=== PATIENT | female | born 1950 | race Caucasian/White ===

== ENCOUNTER 2016-11-18 22:20 | Inpatient (IN) ==
[2016-11-19] MEDS ORDERED: ONDANSETRON 4 MG/2 ML VIAL IV STA (00:43)
[2016-11-19] MEDS ORDERED: HYDROmorphone 2 MG/1 ML VIAL IV STA (00:43)
[2016-11-19 00:47] LABS: Basophils # 0.1 10*3/uL (0.0-0.2); Basophils % 0.5 % (0.0-0.8); Eosinophils # 0.1 10*3/uL (0.0-0.87); Hematocrit 36.6 VOL% (35.7-47.0); Hemoglobin 12.6 GM/DL (12.0-16.0); Immature Granulocytes % 0.4 %; Immature Granulocytes Absolute 0.04 #; Lymphocytes % 18.3 % (21.3-54.2); Mean Corpuscular HGB Conc 34.4 GM/DL (32-36); Mean Corpuscular Hemoglobin 31 PG (27-34); Mean Corpuscular Volume 90.6 FL (87-102); Mean Platelet Volume 10.8 FL (9.6-12.0); Monocytes # 0.9 10*3/uL (0.11-0.8); Neutrophils # 7.8 10*3/uL (1.4-7.4); Neutrophils % 71.8 % (38.7-73.9); Platelet Count 213 T/CUMM (130-400); Red Blood Count 4.04 MC/CUMM (3.8-5.5); Red Cell Distribution Width 11.8 % (9.3-17.3); White Blood Count 10.9 T/CUMM (4-12)
[2016-11-19] MEDS ORDERED: ONDANSETRON 4 MG/2 ML VIAL ONE ×3 (00:55→16:54)
[2016-11-19] MEDS ORDERED: HYDROmorphone 2 MG/1 ML VIAL ONE ×2 (00:56→16:54)
--- NOTE | 2016-11-19 01:02 | Emergency Department Note ---
ISneha Rolonda, am scribing for, and in the presence of, Cleopatra Leung DO 00: 46. IMadhu Debra, DO, personally performed the services described in this documentation, ascribed by Oscar Hoover in my presence, and it is both accurate and complete . Arrival - Arrival Chief Complaint: Non-Specific Stated Complaint: pain/swollen in chest, bleeding nipples ED Nursing Triage Note: AMB TO ER WITH COMPLAINTS OF HAVING A LUMPECTOMY [address] ORTIZ. STATES HAS HAD NO COMPLICATIONS SINCE SURGERY BUT YESTERDAY STARTED HAVING MILD PAIN IN RIGHT BREAST AT SURGICAL SITE. TODAY PAIN BECAME WORSE AND AREA HAS STARTED TO SWELL. AROUND 2100 AREA BEGAN SWELLING EVEN MORE AND STARTED BLEEDING FROM RIGHT NIPPLE. HAD TO HAVE LUMPECTOMY DUE TO A CANCEROUS AREA FOUND AT THE BEGININNG OF . Mode of Arrival: Ambulatory Limitations: No Limitations Source: Patient, Old Records Reviewed, RN Notes Reviewed - History of Present Illness HPI Narrative: Pt is a 66 y/o female who presents to the ED with c/o right breast pain with an onset of yesterday. Pt has a PMHx of Breast CA. Pt states that she had a Lumpectomy x2 weeks ago and that the pain worsened today. She states that she was getting ready for bed when her right breast began to bleed. She confirms associated sxs of swelling and hardness. Pt states that she developed chills but is unaware of having fever. She states that she took 325 mg of Tylenol for pain with no relief. No other complaint/pain in ED. Onset (ago): day(s) Consistency: constant Severity: moderate Severity scale (1-10): 5 Allergies/Adverse Reactions: Allergies Allergy/AdvReac Type Severity Reaction Status Date / Time brimonidine [From Alphagan P] Allergy Severe Fainting Verified 11/18/16 23:13 Cefaclor [From Ceclor] Allergy Severe Palpitation Verified 11/18/16 23:13 s ciprofloxacin [From Cipro] Allergy Severe Palpitation Verified 11/18/16 23:13 s codeine Allergy Severe SHORTNESS Verified 11/18/16 23:13 OF BREATH Dorzolamide [From Cosopt] Allergy Severe EYE Verified 11/18/16 23:13 SWELLING guaifenesin [From Deconex] Allergy Severe Palpitation Verified 11/18/16 23:13 s morphine Allergy Severe Confusion Verified 11/18/16 23:13 phenylephrine [From Deconex] Allergy Severe Palpitation Verified 11/18/16 23:13 s Sulfa (Sulfonamide Allergy Severe SHORTNESS Verified 11/18/16 23:13 Antibiotics) OF BREATH influenza virus vaccine, Allergy Intermediate BLISTER Verified 11/18/16 23:13 specific Pneumococcal Vaccine Allergy Intermediate BLISTER Verified 11/18/16 23:13 timolol [From Cosopt] Allergy Intermediate EYE Verified 11/18/16 23:13 SWELLING penicillin G AdvReac Severe Palpitation Verified 11/18/16 23:13 s Home Medications: Home Medications Medication Instructions Recorded Confirmed Type Bimatoprost 0.01% Oph Soln 1 drop BOTH EYES BEDTIME 11/07/16 11/07/16 History [[place]] Tramadol HCl [Tramadol Tab] 50 mg PO Q6H PRN #10 tablet 11/08/16 Rx Review of System - Review of System 12 point system: reviewed and no additional remarkable complaints except as stated - Review of System Constitutional: Present: chills. Absent: fever Eyes: Absent: discharge Head/Ears/Nose/Throat: Absent: earache Respiratory: Absent: cough Cardiovascular: Absent: chest pain Gastrointestinal: Absent: abdominal pain Genitourinary female: Absent: abnormal menses Musculoskeletal: Absent: arm pain, back pain Skin: Absent: rash Neurological: Absent: headache Psychiatric: Absent: anxiety Endocrine: Absent: cold intolerance Hematological/Lymphatic: Absent: easy bleeding Allergic/Immunologic: Absent: facial swelling Medical,Surgical,& Family Hx - Medical History Neurology: No history of: Seizures HEENT: History of: Eye Problem (GLASSES), Dental Problems (CAPPED TEETH.), Glaucoma Respiratory: No history of: Respiratory Problems (FLU VAC- NO; PNEU VAC-NO ALLERGIC.) Gastrointestinal: History of: GI Problems (IBS) Reproductive: History of: Breast Cancer (RT BREAST) Other: History of: Cancer (BREAST RT.) - Surgical History HEENT Surgeries: Surgical HX of: Eye Surgery (MULTIPLE EYE SURGERY ON LEFT EYE, LASER TX ON RT EYE. DR SALGADO IN [place].) Abdominal Surgeries: Surgical HX of: Abdominal Surgery, Appendectomy, Colonoscopy Reproductive Surgeries: Surgical HX of;: Breast Surgery (RT BREAST BX.), Gynecologic Surgery, Hysterectomy - Family History Family History: Reports;: Family Cancer (MOTHER BREAST, PATERNAL AUNT.), Family Heart Disease (mother had coronary artery disease), Family Hypertension (MOTHER) - Social History Smoking Status: Never smoker Frequency of Alcohol Use: None Type of Drug Use: None Exam Vital Signs: Vital Signs Temperature 98.6 F 11/18/16 23:02 Pulse Rate 99 H 11/18/16 23:02 Respiratory Rate 20 11/18/16 23:02 Blood Pressure 147/82 11/18/16 23:02 O2 Sat by Pulse Oximetry 99 11/18/16 23:02 - General General appearance: alert, in no apparent distress - Head Head exam: Present: atraumatic, normocephalic - Eye Eye exam: Present: PERRL, EOMI - ENT ENT exam: Present: mucous membranes moist. Absent: mucous membranes dry - Neck Neck exam: Present: full ROM. Absent: tenderness - Chest Chest inspection: Present: symmetric chest wall rise, other (right breast incision intact; hard; bruised; and tender). Absent: tenderness - Respiratory Respiratory exam: Present: normal lung sounds bilaterally. Absent: wheezes - Cardiovascular Cardiovascular exam: Present: regular rate, normal rhythm, normal heart sounds. Absent: bradycardia - Abdominal Exam Abdominal exam: Present: soft, normal bowel sounds. Absent: tenderness - Extremities Exam Extremities exam: Present: full ROM. Absent: tenderness - Back Exam Back exam: Present: full ROM. Absent: tenderness - Neurological Exam Neurological exam: Present: alert, oriented X3, CN II-XII intact - Psychiatric Psychiatric exam: Present: normal affect, normal mood - Skin Skin exam: Present: warm, dry, intact, pallor Course Course Narrative: spoke with DR Ortiz who will admit pt and start on antibiotics Results - Labs CBC & BMP: 11/19/16 00:09 11/19/16 00:09 Lab Results: I have reviewed the patients labs Disposition Clinical Impression: Breast pain Case discussed with: patient, patient's family Disposition: Still a Patient Condition: Stable Time of Disposition: 01:49
[2016-11-19 01:18] LABS: Alanine Aminotransferase 31 U/L (13-56); Albumin 3.7 G/DL (3.4-5.0); Alkaline Phosphatase 94 U/L (45-117); Aspartate Amino Transferase 27 U/L (0-37); Bilirubin,Total < 0.39 MG/DL (0.2-1.0); Blood Urea Nitrogen 18 MG/DL (7-18); Calcium 9.4 MG/DL (8.5-10.1); Glucose 148 MG/DL (74-106); Osmolality,Calculated 285.3 MOS/KG (273-304); Potassium 3.9 MMOL/L (3.5-5.1); Sodium 141 MMOL/L (136-145); Total Protein 6.5 G/DL (6.4-8.3)
[2016-11-19] MEDS ORDERED: HYDROmorphone 2 MG/1 ML VIAL IV PRN ×2 (01:50→16:22)
[2016-11-19] MEDS ORDERED: ONDANSETRON 4 MG/2 ML VIAL IV PRN ×3 (01:50→16:46)
[2016-11-19] MEDS: DEXTROSE 5% NACL 0.45% 1,000 ML IV SCH ×3 (03:15→20:06)
[2016-11-19] MEDS: PIPERACILLIN/TAZOBACTAM 3,375 MG in SODIUM CHLORIDE 0.9% 100 ML IV SCH ×3 (03:20→20:34)
[2016-11-19 07:38] LABS: Basophils % 0.2 % (0.0-0.8); Eosinophils % 0.1 % (0.00-10.9); Hematocrit 32.7 VOL% (35.7-47.0); Hemoglobin 11.2 GM/DL (12.0-16.0); Immature Granulocytes % 0.4 %; Immature Granulocytes Absolute 0.03 #; Lymphocytes # 0.9 10*3/uL (1.4-4.0); Lymphocytes % 10.6 % (21.3-54.2); Mean Corpuscular HGB Conc 34.3 GM/DL (32-36); Mean Corpuscular Hemoglobin 32 PG (27-34); Mean Corpuscular Volume 92.1 FL (87-102); Mean Platelet Volume 10.8 FL (9.6-12.0); Monocytes # 0.6 10*3/uL (0.11-0.8); Neutrophils # 6.8 10*3/uL (1.4-7.4); Neutrophils % 81.7 % (38.7-73.9); Platelet Count 156 T/CUMM (130-400); Red Blood Count 3.55 MC/CUMM (3.8-5.5); Red Cell Distribution Width 11.9 % (9.3-17.3); White Blood Count 8.3 T/CUMM (4-12)
[2016-11-19 08:05] LABS: Calcium 8.7 MG/DL (8.5-10.1); Osmolality,Calculated 285.1 MOS/KG (273-304)
[2016-11-19] MEDS: PANTOPRAZOLE 40 MG TABLET PO SCH (08:53)
--- NOTE | 2016-11-19 09:05 | Ultrasound Report ---
Ultrasound of the right breast. Indication: Postoperative from old lumpectomy, swollen and tender. Within the posterior tissues of the right breast, at approximately the 9:00 position, there is a hypoechogenicity, measuring 8.5 x 4.5 x 2.7 cm without internal blood flow. These findings are most suggestive of a hematoma, with seroma or abscess being less likely. The Ultrasound images were captured and stored. PROCEDURE INTERPRETED AT [facility] DEPARTMENT OF RADIOLOGY Final Report Signed by: Dr. Lisa Domínguez
--- NOTE | 2016-11-19 13:21 | General Surg History&Physical ---
Assessment and Plan - Time spent with patient Time spent with patient: Less than 30 minutes (1) Breast pain Status: Acute Assessment and plan: Impression: 1. Right breast pain and swelling probably secondary to seroma versus hematoma Plan: Surgery to evacuate hematoma seroma Current Visit: Yes (2) Infiltrating ductal carcinoma of right breast, estrogen receptor positive, stage 1 Status: Resolved Assessment and plan: Impression: Carcinoma of the right breast status post lumpectomy and oncoplastic reconstruction Current Visit: No History of Present Illness Chief complaint: Onset of swelling and pain in the right breast lumpectomy site History of present illness: Ms. Lees is a 66 year old female white female who underwent almost 2 weeks ago a lumpectomy with oculoplastic reconstruction of the right breast by myself and Dr. Chowdary for a cancer in the breast. She has done well without any unusual problems and back in the clinic and of [facility] and Dr. Chowdary's without any problems. She did well until yesterday when all of a sudden she had some swelling with some increased pain in that breast with a fullness and discomfort. Came to the emergency room where she was admitted and this morning on examination and ultrasound suggests that she may have a hematoma in that area or seroma. We will see if we can take her to surgery and to evacuate this and get this process under control. Home Medications Medication Instructions Recorded Confirmed Type No Known Home Medications [No 11/19/16 11/19/16 History Known Home Medications] Allergies Allergy/AdvReac Type Severity Reaction Status Date / Time brimonidine [From Alphagan P] Allergy Severe Fainting Verified 11/18/16 23:13 Cefaclor [From Ceclor] Allergy Severe Palpitation Verified 11/18/16 23:13 s ciprofloxacin [From Cipro] Allergy Severe Palpitation Verified 11/18/16 23:13 s codeine Allergy Severe SHORTNESS Verified 11/18/16 23:13 OF BREATH Dorzolamide [From Cosopt] Allergy Severe EYE Verified 11/18/16 23:13 SWELLING guaifenesin [From Deconex] Allergy Severe Palpitation Verified 11/18/16 23:13 s morphine Allergy Severe Confusion Verified 11/18/16 23:13 phenylephrine [From Deconex] Allergy Severe Palpitation Verified 11/18/16 23:13 s Sulfa (Sulfonamide Allergy Severe SHORTNESS Verified 11/18/16 23:13 Antibiotics) OF BREATH influenza virus vaccine, Allergy Intermediate BLISTER Verified 11/18/16 23:13 specific Pneumococcal Vaccine Allergy Intermediate BLISTER Verified 11/18/16 23:13 timolol [From Cosopt] Allergy Intermediate EYE Verified 11/18/16 23:13 SWELLING penicillin G AdvReac Severe Palpitation Verified 11/18/16 23:13 s Medical,Surgical,& Family Hx - Medical History Neurology: No history of: Seizures HEENT: History of: Eye Problem (GLASSES), Dental Problems (CAPPED TEETH.), Glaucoma Respiratory: No history of: Respiratory Problems (FLU VAC- NO; PNEU VAC-NO ALLERGIC.) Gastrointestinal: History of: GI Problems (IBS) Musculoskeletal: No history of: Amputation Reproductive: History of: Breast Cancer (RT BREAST) Other: History of: Cancer (BREAST RT.) - Surgical History Cardiac Surgeries: Patient Denies: Cardiac Catheterization Thoracic Surgeries: Patient denies;: Organ Transplant, Lobectomy Neurologic Surgeries: Patient denies: Neurologic Surgery HEENT Surgeries: Surgical HX of: Eye Surgery (MULTIPLE EYE SURGERY ON LEFT EYE, LASER TX ON RT EYE. DR SALGADO IN [place].) Patient denies: Tonsilectomy & Adenoidectomy Abdominal Surgeries: Surgical HX of: Abdominal Surgery, Appendectomy, Colonoscopy Reproductive Surgeries: Surgical HX of;: Breast Surgery (RT BREAST BX.), Gynecologic Surgery, Hysterectomy Patient denies;: Genitourinary Surgery Orthopedic Surgeries: Patient denies;: Implanted Devices, Orthopedic Surgery, Spinal Surgery, Total Hip Replacement, Total Knee Replacement - Family History Family History: Reports;: Family Cancer (MOTHER BREAST, PATERNAL AUNT.), Family Heart Disease (mother had coronary artery disease), Family Hypertension (MOTHER) - Social History Smoking Status: Never smoker Frequency of Alcohol Use: None Type of Drug Use: None Exam - Constitutional Vitals: Period Temp Pulse Resp BP Sys/Kramer Pulse Ox Last 24 Hr 96.5 F-98.6 F 50-99 16-21 58-147/34-82 95-100 General appearance: mild distress - Head Head exam: Present: normal inspection - ENT ENT exam: Present: normal exam - Neck Neck exam: Present: normal inspection - Respiratory Respiratory exam: Present: rales - Cardiovascular Cardiovascular exam: Present: RRR - GI/Abdominal GI/Abdominal exam: Present: hypoactive bowel sounds, soft - Extremities Exam Extremities exam: Present: normal inspection - Back Exam Back exam: Present: normal inspection - Neurological Exam Neurological exam: Present: alert, oriented X3, CN II-XII intact - Skin Skin exam: Present: normal color, warm, other (Right breast is somewhat swollen with a lateral incision that appears to be healing nicely without problems. Appears to be tender at this time with a fullness on the lateral part of the breast) 12 point system: reviewed and no additional remarkable complaints except as stated Quality Measures - Stroke Symptom Onset Unknown: No Results - Labs CBC & BMP: 11/19/16 07:28 11/19/16 07:28 Lab Results: I have reviewed the past 24 hour labs
[2016-11-19] MEDS ORDERED: BUPIVACAINE 0.25% 50 ML VIAL ONE (15:01)
[2016-11-19] MEDS ORDERED: TISSUE ADHESIVE 1 EACH APPLICATOR TOP ONE (16:15)
--- NOTE | 2016-11-19 16:35 | Anesthesia Post-Op ---
Anesthesia Post OP - Post Ansesthetic Evaluation Patient seen in post op: Yes Resp: within normal limits CV: within normal limits Mental: within normal limits Temp: within normal limits Agmh-Vh-Ernlyovmb: within normal limits Nausea and Vomiting: within normal limits Pain: within normal limits
[2016-11-19] MEDS ORDERED: fentaNYL 100 MCG/2 ML VIAL ONE (16:36)
[2016-11-19] MEDS ORDERED: SEVOFLURANE 1 UNIT/15 MINUTE INH ONE (16:37)
[2016-11-19] MEDS ORDERED: ACETAMINOPHEN 1,000 MG/100 ML VIAL IV ONE (16:37)
[2016-11-19] MEDS ORDERED: DEXAMETHASONE 10 MG/1 ML VIAL ONE (16:37)
--- NOTE | 2016-11-19 16:39 | Operative Note ---
Date of procedure: 11/19/16 Pre-op diagnosis: Hematoma right breast lumpectomy site Post-op diagnosis: same Procedure: Operative note: Preoperative diagnosis: Hematoma with swelling and pain right breast lumpectomy site Postoperative diagnosis same Procedure:. He evacuation of hematoma with exploration of lumpectomy wound and primary layered closure Surgeon Dr. Anne Anesthesia general endotracheal Brief history: 66-year-old white female had undergone a lumpectomy with an oncoplastic reconstruction per Dr. Chowdary for a cancer of the right breast. She had been doing extremely well the wound had looked good the breast was in good shape at this time without problems. She had seen Dr. Beck he removed the ends of the sutures for the subcuticular stitch on the patient did well for about 24 hours. Suddenly she had the onset of pain in the breast did not describe doing anything unusual with marked swelling and discomfort. She came in through the emergency room early this morning and was admitted. Ultrasound of the breast suggested hematoma seroma of this area. With the discomfort and is marked swelling we felt his best go ahead with surgery try to evacuate this area. Procedure With patient in the supine position prepped and draped in sterile fashion timeout and antibiotics completed approaches area of the right breast. I brought the ultrasound of the begin to look at this area and what I was seeing look like 2 areas of hematoma one in the breast and then went underneath the breast. I took a needle 18-gauge with a 10 cc syringe placed it through with ultrasound guidance into both hematoma areas but could not withdraw anything at this time. I felt like that it meant that we will probably have to open the wound up and try to clean out this clot. At that point I made an incision through the old incision on the lateral aspect of the breast opening this up. We did we encountered hematoma that was within the breast tissue at this time that we evacuated pretty easily. This look like it down to the lower end of this area and there was hematoma up underneath this breast flap on top of the muscle is itself. This is where the most of the hematoma was at and I was able to get in there and begin to evacuate all the old clot manually and then we used some saline and suctioned get the rest of it out and clean. Once the hematoma had been removed and the breast was open at this time I washed irrigated with saline solution look for any bleeding. Some small stuff I touch with cautery at this time. They have been there one angle was possibly a small bleeder in the deep breast tissue which we oversewed with a [id number] of a 3-0 Vicryl. At that point I washed and cleaned it up again finding no evidence of any other bleeding seen at this time. Did not see any big bleeding sites at this point. With that I like to make a separate stab wound bring in # 10 Harry-Mayo up through the breast at this time to go underneath this breast flap. Once that was completed I took Tisseel and sprayed it into the wound in the area of the muscle at this time. With that in place I laid the drain down and then I closed this breast flap over this muscle with interrupted 3-0 Vicryl suture and I closed the deep breast tissue with interrupted 3-0 Vicryl. I then closed the subcutaneous tissue and with interrupted 3-0 Vicryl. With that completed we then closed the skin with a running 4-0 Monocryl. I then secured the drain in with 3-0 nylon. At that point we put Dermabond on the wound put a bulky dressing on think the patient recovery room. Estimated blood loss 20 cc Sponge count correct 2 Drains one #10 Harry-Mayo Complications none Condition stable satisfactory Anesthesia: NICOLLE Surgeon / Physician: Janak Anne Estimated blood loss: other (20 cc) Specimens: other (Hematoma) Condition: stable Disposition: floor Results - Labs CBC & BMP: 11/19/16 07:28 11/19/16 07:28 Discharge Plan - Discharge Medications No Action No Known Home Medications [No Known Home Medications] - Follow Up or Referral - Forms/Instructions
[2016-11-19] MEDS: HYDROmorphone 2 MG/1 ML VIAL IV PRN ×2 (16:59→17:14)
[2016-11-19] MEDS ORDERED: LACTATED RINGERS 1,000 ML IV SCH (17:00)
[2016-11-19 21:26] LABS: Hematocrit 32.8 VOL% (35.7-47.0); Hemoglobin 10.9 GM/DL (12.0-16.0)
[2016-11-19] MEDS: oxyCODONE/ACETAMINOPHEN 5-325 MG TABLET PO PRN (22:05)
[2016-11-20 03:30] LABS: Hematocrit 30.7 VOL% (35.7-47.0); Hemoglobin 10.4 GM/DL (12.0-16.0); Immature Granulocytes % 0.5 %; Immature Granulocytes Absolute 0.04 #; Lymphocytes # 0.6 10*3/uL (1.4-4.0); Lymphocytes % 7.5 % (21.3-54.2); Mean Corpuscular HGB Conc 33.9 GM/DL (32-36); Mean Corpuscular Hemoglobin 31 PG (27-34); Mean Corpuscular Volume 91.6 FL (87-102); Mean Platelet Volume 10.8 FL (9.6-12.0); Monocytes # 0.1 10*3/uL (0.11-0.8); Neutrophils # 7.1 10*3/uL (1.4-7.4); Platelet Count 172 T/CUMM (130-400); Red Blood Count 3.35 MC/CUMM (3.8-5.5); Red Cell Distribution Width 11.9 % (9.3-17.3); White Blood Count 7.9 T/CUMM (4-12)
[2016-11-20 03:59] LABS: Calcium 8.7 MG/DL (8.5-10.1); Osmolality,Calculated 279.5 MOS/KG (273-304); Potassium 3.9 MMOL/L (3.5-5.1)
[2016-11-20] MEDS: DEXTROSE 5% NACL 0.45% 1,000 ML IV SCH ×2 (04:04→12:53)
[2016-11-20] MEDS: PIPERACILLIN/TAZOBACTAM 3,375 MG in SODIUM CHLORIDE 0.9% 100 ML IV SCH ×3 (04:36→20:21)
[2016-11-20 05:00] LABS: Lymphocytes 6 % (20-55); Platelet Estimate Normal; Segmented Neutrophils 92 % (50-85); Total Cells Counted 100
[2016-11-20] MEDS: oxyCODONE/ACETAMINOPHEN 5-325 MG TABLET PO PRN (06:03)
[2016-11-20] MEDS: PANTOPRAZOLE 40 MG TABLET PO SCH (08:39)
--- NOTE | 2016-11-20 10:07 | EKG Report ---
Stationary ECG Study [facility] ER Test Date: 11/19/2016 12:50:30 AM Pat Name: LANEY MEDINA Department: Room: 340 Gender: F [place]: : 1950 Requested by: Cleopatra Leung Order Number: [id number] Reading MD: PETRA RIVAS Intervals [place] Rate: 61 P: 94 MO: 177 QRS: 60 QRSD: 86 T: 76 QT: 413 QTc: 415 Interpretive Statements SINUS RHYTHM Electronically Signed On 11-20-16 20:34:19 CDT by PETRA RIVAS [email or web address]
--- NOTE | 2016-11-20 10:50 | General Surgery Progress Note ---
Assessment and Plan - Time spent with patient Time spent with patient: Less than 30 minutes (1) Breast pain Status: Acute Assessment and plan: Impression: 1. Right breast pain and swelling probably secondary to seroma versus hematoma Plan: Surgery to evacuate hematoma seroma 11/20/2016. 1030 hrs. Patient status post evacuation hematoma the right breast. She looks good this morning minimal swelling some discomfort minimal bruising some minimal drainage from FRANCISCO drainage. Clinically she seems better at this point time and may need some help with her wound care and management of the drains. So far we will get her up and move around today and can see how she basically does hope to send her home tomorrow if everything stable. Her hematocrit is down 27 at this time. Current Visit: Yes (2) Infiltrating ductal carcinoma of right breast, estrogen receptor positive, stage 1 Status: Resolved Assessment and plan: Impression: Carcinoma of the right breast status post lumpectomy and oncoplastic reconstruction Current Visit: No Subjective Patient reports: Present: no new complaints, pain is less, tolerating liquids well, afebrile Exam - Constitutional Vitals: Period Temp Pulse Resp BP Sys/Kramer Pulse Ox Last 24 Hr 97.0 F-98.2 F 69-90 14-20 102-162/51-74 92-100 General appearance: mild distress - ENT ENT exam: Present: normal exam - Neck Neck exam: Present: normal inspection - Respiratory Respiratory exam: Present: clear to auscultation bilaterally, rales - Cardiovascular Cardiovascular exam: Present: RRR - Breasts Breasts: pain (Improved), swelling (Minimal), other (Some bruising and minimal FRANCISCO drainage) - GI/Abdominal GI/Abdominal exam: Present: hypoactive bowel sounds, tenderness, soft - Extremities Exam Extremities exam: Present: normal inspection - Back Exam Back exam: Present: normal inspection - Neurological Exam Neurological exam: Present: alert, oriented X3, CN II-XII intact - Skin Skin exam: Present: normal color, warm, dry Results - Labs CBC & BMP: 11/20/16 03:17 11/20/16 03:17 Lab Results: I have reviewed the past 24 hour labs Quality Measures - VTE Contraindication to Pharmacological VTE Prophylaxis: High Risk of Bleeding - Stroke Symptom Onset Unknown: No
[2016-11-20] MEDS: ACETAMINOPHEN 325 MG TABLET PO PRN (20:20)
[2016-11-21] MEDS: PIPERACILLIN/TAZOBACTAM 3,375 MG in SODIUM CHLORIDE 0.9% 100 ML IV SCH ×2 (04:26→13:22)
[2016-11-21 06:08] LABS: Basophils % 0.3 % (0.0-0.8); Eosinophils % 0.5 % (0.00-10.9); Hematocrit 27.5 VOL% (35.7-47.0); Hemoglobin 9.4 GM/DL (12.0-16.0); Immature Granulocytes % 0.6 %; Immature Granulocytes Absolute 0.04 #; Lymphocytes # 1.6 10*3/uL (1.4-4.0); Lymphocytes % 23.8 % (21.3-54.2); Mean Corpuscular HGB Conc 34.2 GM/DL (32-36); Mean Corpuscular Hemoglobin 31 PG (27-34); Mean Corpuscular Volume 91.1 FL (87-102); Mean Platelet Volume 10.9 FL (9.6-12.0); Monocytes # 0.3 10*3/uL (0.11-0.8); Monocytes % 4.7 % (1.7-12.7); Neutrophils # 4.6 10*3/uL (1.4-7.4); Neutrophils % 70.1 % (38.7-73.9); Platelet Count 155 T/CUMM (130-400); Red Blood Count 3.02 MC/CUMM (3.8-5.5); Red Cell Distribution Width 12.1 % (9.3-17.3); White Blood Count 6.6 T/CUMM (4-12)
[2016-11-21 06:41] LABS: Calcium 8.5 MG/DL (8.5-10.1); Magnesium 2.2 MG/DL (1.8-2.4); Osmolality,Calculated 284.8 MOS/KG (273-304); Potassium 3.3 MMOL/L (3.5-5.1)
[2016-11-21] MEDS: PANTOPRAZOLE 40 MG TABLET PO SCH (09:19)
[2016-11-21] MEDS: ACETAMINOPHEN 325 MG TABLET PO PRN (09:20)
--- NOTE | 2016-11-21 09:53 | Discharge Summary ---
Hospital Course - Hospital Course Hospital Course: Discharge summary: Discharge diagnoses: 1. Hematoma right breast lumpectomy site 2. Carcinoma the right breast status post lumpectomy with oncoplastic reconstruction Procedure: Exploration of wound with evacuation of hematoma and primary repair Surgeon Dr. Anne Brief summary 66-year-old white female who is better than 2 weeks from her lumpectomy with oncoplastic reconstruction she had been doing extremely well with very good results. The tumor was removed completely with good margins and lymph nodes essentially negative except for maybe some microscopic metastatic lesion seen in one lymph node. She has been progressing well try to get her healed up so that she needed to start chemotherapy our plans for radiation therapy would be in that direction. She is actually been back to the office to see me and Dr. Chowdary and everything looked in good shape. She does not describe anything unusually stressful at the time but on Monday she suddenly had the onset of pain and swelling in the right breast. She came into the emergency room where we saw her and admitted her and it was clear that what she had was hematoma that had developed in the right breast. What caused it is unclear at this point time she denies any stressful things are bruises or any unusual discomfort to the breast at this time. At that point she was taken to the operating room where it was clear on by ultrasound she had a hematoma but it was deeper than what I thought it was on just plain ultrasound. It appeared to be underneath the breast tissue under the muscle area. I ended up having open the incision completely and evacuate the hematoma completely at this time. Could not find any major bleeding site of as an etiology for this problem. We did apply some fibrin glue to the wound bed along with the drain. Postoperatively she is done well last hematocrit is 27 and she is sore but there is no real swelling there at this time. There is a little more FRANCISCO drainage than anticipated at this time but at this reason we left little drain in there on top of the muscle. We had at the time of surgery reconstructed everything in order to try to keep it as clean as we could and keep the flaps in place so that we get the best cosmetic result we can. At this point she is doing well enough gutter and some support. She was pretty sore yesterday and little reluctant about going home so we kept her in but today she feels more comfortable with it even with the soreness at this time. She understands how to take care of the drain and the dressings at this time and have felt to be okay to probably let her go on home at this time. Try to get her back in the office on for the possibility get the drains out. - Time spent with patient Time with patient DS: Less than 30 minutes Diagnosis - Discharge Diagnosis (1) Breast pain Status: Resolved (2) Infiltrating ductal carcinoma of right breast, estrogen receptor positive, stage 1 Status: Resolved (3) Posttraumatic hematoma of right breast Status: Resolved Specialty Discharge - Follow Up or Referrals Follow up with: Janak Anne MD [Physician] - 11/24/16 (DRAIN REMOVAL) Discharge Plan - Discharge Data Disposition: Disch To Home/Self Care Condition at Discharge: Stable Discharge Diet: advance to your usual diet Activity: increase activity as tolerated, no lifting, other (Limit the use of the right arm to heavy lifting and straining) Hygiene: may shower Weight Bearing at Discharge: full weight bearing Driving: not until seen by doctor Contact your physician if you experience:: fever over 101, Redness or swelling, Bleeding, pain uncontrolled by pain medications Wound / Dressing Care Instructions: Wound care to the right breast daily. 1. May shower and use soap of choice to let it run over the incision and the drain site. 2. May cover the incisions with the slough and about the drain site a [address] a ABD pad on the entire breast and used the surgical bra for support - Discharge Medications New Acetaminophen Tab [Tylenol Tab] 650 mg PO Q6H PRN tablet PRN Reason: Pain Mild (1-3) And/Or Fever - Follow Up or Referral Follow Up: Janak Anne MD [Physician] - 1 Week (DRAIN REMOVAL) - Forms/Instructions Exam - Constitutional Vitals: Period Temp Pulse Resp BP Sys/Kramer Pulse Ox Last 24 Hr 97.7 F-98.4 F 66-112 18-20 114-145/61-72 93-98 General appearance: no acute distress - Head Head exam: Present: normal inspection - ENT ENT exam: Present: normal exam - Neck Neck exam: Present: normal inspection - Respiratory Respiratory exam: Present: clear to auscultation bilaterally - Cardiovascular Cardiovascular exam: Present: regular rate and rhythm - GI/Abdominal GI/Abdominal exam: Present: hypoactive bowel sounds, soft - Extremities Exam Extremities exam: Present: normal inspection - Back Exam Back exam: Present: normal inspection - Neurological Exam Neurological exam: Present: alert, oriented X3, CN II-XII intact - Psychiatric Psychiatric exam: Present: normal affect, normal mood, anxious - Skin Skin exam: Present: normal color, warm, other (Some bruising of the right breast but no unusual swelling. J. Drainage is serosanguineous) Discharge Results Labs on day of discharge: Labs from last 24 hours 11/21/16 11/21/16 05:44 05:44 WBC 6.6 RBC 3.02 L Hgb 9.4 L Hct 27.5 L MCV 91.1 MCH 31 MCHC 34.2 RDW 12.1 Plt Count 155 MPV 10.9 Neut % (Auto) 70.1 Lymph % (Auto) 23.8 Divide % (Auto) 4.7 Eos % (Auto) 0.5 Baso % (Auto) 0.3 Neut # (Auto) 4.6 Lymph # (Auto) 1.6 Divide # (Auto) 0.3 Eos # (Auto) 0.0 Baso # (Auto) 0.0 Immature Gran % 0.6 Nucleated RBC % 0.0 Immature Gran # 0.04 Nucleated RBCs # 0.00 Immature Plt Fraction 0.0 Sodium 144 Potassium 3.3 L Chloride 108 H Carbon Dioxide 30 Anion Gap 9.3 BUN 11 Creatinine 0.60 GFR Calculation 93 BUN/Creatinine Ratio 18.00 Glucose 98 Calculated Osmolality 284.8 Calcium 8.5 Magnesium 2.2 DS: Provider Date of admission: 11/19/16 01:50 Primary care physician: Silvino Tamez DO Attending physician on admission: Janak Anne MD Consults: 11/19/16 13:26 Consult to Anesthesiology [CONS] Routine Consulting Provider: Reason for Anesthesiology: Pre-op Clearance Discharging clinician: Janak Anne MD Expected date of discharge: 11/21/16
[2016-11-21 10:57] VITALS: BP 122/68
== END 2016-11-21 13:06 | disposition home or self-care (01) | DRG 921 ==
LOC: N.ED 22:20 → N.EDINP 11-19 01:50 → N.3E 11-19 02:22
PROVIDERS: ADMIT Specialist; ATTEND Specialist